=== PATIENT | female | born 1990 | race Hispanic/Latino ===

== ENCOUNTER 2021-08-12 08:34 | Emergency (ER) | payer MEDICAID, OTHER ==
[2021-08-12 09:32] LABS: Actual Bicarbonate (HCO3v) 18 mEq/L (22-28); Base Excess -6.4 mEq/L (-2.0 to +3.0); Calcium, Ionized (venous) 1.12 mmol/L (1.16-1.32); Chloride (VBG) 101 mmol/L (98-106); Potassium (VBG) 4.72 mmol/L (3.70-5.30); Puncture Site Other Site; RapidComm Collect By LAB; Sodium 133.8 mmol/L (133-146); pH (venous) 7.36 (7.32-7.43)
[2021-08-12 09:49] LABS: Bilirubin Neg (Negative); Blood, Urine Negative (Negative); Clarity Clear (Clear); Glucose, Urine (Dipstick) >=1000 mg/dL (Negative); Ketone, Urine 50 mg/dL (Negative); Leukocyte Negative (Negative); Nitrite Negative (Negative); Protein, Urine (Dipstick) 30 mg/dl (Neg-Trace); Urobilinogen Normal mg/dL (Less than 2)
[2021-08-12 09:52] LABS: Pregnancy Test - Urine (BHCG) Negative (Negative); Pregu Control Background? CLEAR/WHITE (CLR/WHITE); Pregu Control Bar Appear? YES (CONTROL BAR)
[2021-08-12 09:57] LABS: Magnesium 1.7 mg/dL (1.6-2.6)
[2021-08-12 10:03] LABS: ALT (SGPT) 15 U/L (8-55); AST (SGOT) 13 U/L (5-34); Albumin 4.1 g/dL (3.5-5.0); Alkaline Phosphatase 137 U/L (40-110); Anion Gap 19 mmol/L (10-20); BUN (Urea Nitrogen) 14 mg/dL (7.0-18.7); Bilirubin, Total 0.4 mg/dL (0.2-1.2); Calc. Creatinine Clearance 0 mL/min (70-130); Calcium 9.2 mg/dL (7.8-10.44); Carbon Dioxide 21 mmol/L (22-29); Chloride 98 mmol/L (98-107); Estimated GFR 97; Globulin 3.3 g/dL (2.4-3.5); Phosphorus 4.3 mg/dL (2.3-4.7); Potassium 5.1 mmol/L (3.5-5.1); Protein, Total 7.4 g/dL (6.0-8.3); Sodium 133 mmol/L (136-145)
[2021-08-12 10:09] LABS: #Basophils 0.1 10x3/uL (0.0-0.2); #Eosinphils 0.3 10x3/uL (0.0-0.5); #Monocytes 0.8 10x3/uL (0.0-1.1); #Neutrophils 6.2 10x3/uL (1.5-8.4); %Basophils 1.1 % (0.0-2.0); %Eosinophils 3.3 % (0.0-6.0); %Lymphocytes 26.7 % (18.0-47.0); %Monocytes 7.9 % (0.0-10.0); %Neutrophils 60.6 % (40.0-75.0); Hemoglobin 13.5 g/dL (12.0-15.5); Mean Corpuscular HGB CONC 32.4 g/dL (32.0-36.0); Mean Corpuscular Volume 77.2 fl (81.6-98.3); Mean Platelet Volume 11.7 fl (7.4-10.4); Platelet Count 320 10x3/uL (150-450); RBC Distribution Width 14.3 % (11.5-14.5); White Blood Cell (WBC) Count 10.2 10x3/uL (3.5-10.5)
[2021-08-12 10:10] LABS: Glucose 588 mg/dL (70-105)
[2021-08-12 10:20] LABS: Bacteria/HPF None Seen HPF (None Seen); RBC/HPF 0-3 HPF (0-3); Squamous Epithelial 0-3 HPF (0-3); WBC/HPF 0-3 HPF (0-3)
== END 2021-08-12 11:36 | disposition home or self-care (01) ==
LOC: CSHERS 08:34
DX: E11.65 Type 2 diabetes mellitus with hyperglycemia (principal); E86.0 Dehydration
CPT/HCPCS: 36416; 71045; 80053; 81003; 81015; 81025; 82010; 82805; 83735; 84100; 84484; 85025; 93005; 96360; 96361

== ENCOUNTER 2022-05-23 03:35 | Emergency (ER) | payer OTHER | END 2022-05-23 06:51 | disposition home or self-care (01) | LOC: CSHERS 03:35 | DX: O20.8 Other hemorrhage in early pregnancy (principal); E11.9 Type 2 diabetes mellitus without complications; E66.9 Obesity, unspecified; Z79.4 Long term (current) use of insulin; Z3A.01 Less than 8 weeks gestation of pregnancy | CPT/HCPCS: 36415; 76856; 84702 ==

== ENCOUNTER 2022-06-13 18:55 | Emergency (ER) | payer OTHER ==
[2022-06-13 21:47] LABS: #Eosinphils 0.3 10x3/uL (0.0-0.5); #Neutrophils 6.9 10x3/uL (1.5-8.4); %Basophils 0.3 % (0.0-2.0); %Eosinophils 2.5 % (0.0-6.0); %Lymphocytes 24.6 % (18.0-47.0); %Neutrophils 63.2 % (40.0-75.0); Hemoglobin 11.7 g/dL (12.0-15.5); Mean Corpuscular HGB CONC 32.7 g/dL (32.0-36.0); Mean Corpuscular Hemoglobin 25.9 pg (27.0-33.0); Mean Corpuscular Volume 79.4 fl (81.6-98.3); Mean Platelet Volume 10.3 fl (7.4-10.4); Platelet Count 295 10x3/uL (150-450); RBC Distribution Width 14.6 % (11.5-14.5); Red Blood Cell (RBC) Count 4.51 10x6/uL (3.90-5.03); White Blood Cell (WBC) Count 10.9 10x3/uL (3.5-10.5)
[2022-06-13 22:00] LABS: ALT (SGPT) 9 U/L (8-55); AST (SGOT) 10 U/L (5-34); Albumin 3.6 g/dL (3.5-5.0); Alkaline Phosphatase 61 U/L (40-110); Anion Gap 14 mmol/L (10-20); BUN (Urea Nitrogen) 11 mg/dL (7.0-18.7); Bilirubin, Total 0.1 mg/dL (0.2-1.2); Calc. Creatinine Clearance 0 mL/min (70-130); Calcium 8.9 mg/dL (7.8-10.44); Carbon Dioxide 19 mmol/L (22-29); Chloride 107 mmol/L (98-107); Estimated GFR 125; Globulin 3.1 g/dL (2.4-3.5); Glucose 101 mg/dL (70-105); Potassium 3.8 mmol/L (3.5-5.1); Protein, Total 6.7 g/dL (6.0-8.3); Sodium 136 mmol/L (136-145)
[2022-06-13 22:09] LABS: Bilirubin Neg (Negative); Blood, Urine 50 (Negative); Clarity Slightly Cloudy (Clear); Glucose, Urine (Dipstick) Normal (Negative); Ketone, Urine Negative (Negative); Leukocyte 100 (Negative); Nitrite Negative (Negative); Protein, Urine (Dipstick) 30 mg/dl (Neg-Trace); Urobilinogen Normal mg/dL (Less than 2)
[2022-06-13 22:27] LABS: Bacteria/HPF 2+ HPF (None Seen); Squamous Epithelial 0-3 HPF (0-3)
== END 2022-06-13 22:37 | disposition home or self-care (01) ==
LOC: CSHERS 18:55
DX: N30.00 Acute cystitis without hematuria (principal); E11.9 Type 2 diabetes mellitus without complications; Z79.4 Long term (current) use of insulin
CPT/HCPCS: 36415; 76815; 80053; 81003; 81015; 85025; 87086

== ENCOUNTER 2022-09-11 07:46 | Day surgery (SDC) | payer OTHER ==
[2022-09-11 09:12] VITALS: BMI 47.6
[2022-09-11] MEDS ORDERED: hydrALAZINE 20 MG/ML VIAL SLOW IVP PRN (09:13)
== END 2022-09-11 09:58 | disposition home or self-care (01) ==
LOC: CSHLD/OP 07:46
PROVIDERS: ATTEND Family Medicine
DX: O46.92 Antepartum hemorrhage, unspecified, second trimester (principal); O24.312 Unspecified pre-existing diabetes mellitus in pregnancy, second trimester; O10.912 Unspecified pre-existing hypertension complicating pregnancy, second trimester; O99.282 Endocrine, nutritional and metabolic diseases complicating pregnancy, second trimester; E03.9 Hypothyroidism, unspecified; O99.213 Obesity complicating pregnancy, third trimester; E66.9 Obesity, unspecified; Z79.899 Other long term (current) drug therapy; Z3A.23 23 weeks gestation of pregnancy

== ENCOUNTER 2022-09-23 12:41 | Day surgery (SDC) | payer OTHER ==
[2022-09-23] MEDS ORDERED: hydrALAZINE 20 MG/ML VIAL SLOW IVP PRN (13:26)
[2022-09-23 14:04] VITALS: BMI 45.3
== END 2022-09-23 15:40 | disposition home or self-care (01) ==
LOC: CSHLD/OP 12:41
PROVIDERS: ATTEND Family Medicine
DX: O36.8120 Decreased fetal movements, second trimester, not applicable or unspecified (principal); O24.112 Pre-existing type 2 diabetes mellitus, in pregnancy, second trimester; O10.912 Unspecified pre-existing hypertension complicating pregnancy, second trimester; Z79.4 Long term (current) use of insulin; Z3A.25 25 weeks gestation of pregnancy
CPT/HCPCS: 76815; 99282

== ENCOUNTER 2022-10-12 08:23 | Day surgery (SDC) | payer OTHER ==
[2022-10-12 08:45] VITALS: BMI 48.2
== END 2022-10-12 10:05 | disposition home or self-care (01) ==
LOC: CSHLD/OP 08:23
PROVIDERS: ATTEND Family Medicine
DX: O99.891 Other specified diseases and conditions complicating pregnancy (principal); Z3A.28 28 weeks gestation of pregnancy
CPT/HCPCS: 87480; 87510; 87660; 99283

== ENCOUNTER 2022-10-18 21:43 | Day surgery (SDC) | payer OTHER ==
[2022-10-18 22:09] VITALS: BMI 48.3
[2022-10-18] MEDS ORDERED: Acetaminophen 500 MG TAB PO SCH (22:30)
[2022-10-18 22:48] LABS: Creatinine, Urine 61.17 mg/dL (47-110)
[2022-10-18 23:08] LABS: #Eosinphils 0.2 10x3/uL (0.0-0.5); #Monocytes 0.8 10x3/uL (0.0-1.1); #Neutrophils 6.6 10x3/uL (1.5-8.4); %Basophils 0.4 % (0.0-2.0); %Eosinophils 2.4 % (0.0-6.0); %Monocytes 7.7 % (0.0-10.0); %Neutrophils 67.7 % (40.0-75.0); Hematocrit 34.1 % (34.9-44.5); Hemoglobin 11.1 g/dL (12.0-15.5); Mean Corpuscular HGB CONC 32.6 g/dL (32.0-36.0); Mean Corpuscular Hemoglobin 26.4 pg (27.0-33.0); Mean Corpuscular Volume 81.2 fl (81.6-98.3); Mean Platelet Volume 11.2 fl (7.4-10.4); Platelet Count 264 10x3/uL (150-450); RBC Distribution Width 14.1 % (11.5-14.5); White Blood Cell (WBC) Count 9.7 10x3/uL (3.5-10.5)
[2022-10-18 23:27] LABS: ALT (SGPT) 30 U/L (8-55); AST (SGOT) 12 U/L (5-34); Alkaline Phosphatase 147 U/L (40-110); Anion Gap 14 mmol/L (10-20); BUN (Urea Nitrogen) 8 mg/dL (7.0-18.7); Bilirubin, Total 0.2 mg/dL (0.2-1.2); Calc. Creatinine Clearance 257 mL/min (70-130); Calcium 8.6 mg/dL (7.8-10.44); Carbon Dioxide 18 mmol/L (22-29); Chloride 108 mmol/L (98-107); Estimated GFR 123; Globulin 3.2 g/dL (2.4-3.5); Glucose 200 mg/dL (70-105); Potassium 3.8 mmol/L (3.5-5.1); Protein, Total 6.2 g/dL (6.0-8.3); Sodium 136 mmol/L (136-145)
== END 2022-10-19 00:30 | disposition home or self-care (01) ==
LOC: CSHLD/OP 21:43
PROVIDERS: ATTEND Family Medicine
DX: O13.3 Gestational [pregnancy-induced] hypertension without significant proteinuria, third trimester (principal); O99.213 Obesity complicating pregnancy, third trimester; E66.01 Morbid (severe) obesity due to excess calories; O99.283 Endocrine, nutritional and metabolic diseases complicating pregnancy, third trimester; E03.9 Hypothyroidism, unspecified; O24.313 Unspecified pre-existing diabetes mellitus in pregnancy, third trimester; Z79.4 Long term (current) use of insulin; Z79.82 Long term (current) use of aspirin; Z79.890 Hormone replacement therapy; Z79.899 Other long term (current) drug therapy; Z90.49 Acquired absence of other specified parts of digestive tract; Z3A.29 29 weeks gestation of pregnancy
CPT/HCPCS: 36415; 80053; 82570; 84156; 85025; 99283

== ENCOUNTER 2022-11-24 17:44 | Day surgery (SDC) | payer OTHER ==
[2022-11-24 18:42] VITALS: BMI 51.3
[2022-11-24] MEDS ORDERED: hydrALAZINE 20 MG/ML VIAL SLOW IVP PRN (18:50)
[2022-11-24] MEDS ORDERED: Lantus 1000 UNITS/10 ML VIAL SC SCH (21:00)
[2022-11-24] MEDS ORDERED: Labetalol HCl 100 MG TAB PO SCH (21:00)
[2022-11-25] MEDS ORDERED: Levothyroxine Sodium 75 MCG TAB PO SCH (06:00)
[2022-11-25] MEDS ORDERED: HumaLOG 300 UNITS/3 ML VIAL SC SCH (08:00)
[2022-11-25] MEDS ORDERED: NIFEdipine XL 90 MG ER.TAB PO SCH (09:00)
== END 2022-11-24 19:59 | disposition home or self-care (01) ==
LOC: CSHLD/OP 17:44
PROVIDERS: ATTEND Family Medicine
DX: O16.3 Unspecified maternal hypertension, third trimester (principal); O24.113 Pre-existing type 2 diabetes mellitus, in pregnancy, third trimester; O99.283 Endocrine, nutritional and metabolic diseases complicating pregnancy, third trimester; E03.9 Hypothyroidism, unspecified; O99.213 Obesity complicating pregnancy, third trimester; E66.01 Morbid (severe) obesity due to excess calories; O99.513 Diseases of the respiratory system complicating pregnancy, third trimester; J45.909 Unspecified asthma, uncomplicated; Z3A.34 34 weeks gestation of pregnancy; Z90.49 Acquired absence of other specified parts of digestive tract; Z79.890 Hormone replacement therapy; Z79.899 Other long term (current) drug therapy; Z79.4 Long term (current) use of insulin; Z79.82 Long term (current) use of aspirin
CPT/HCPCS: 36416

== ENCOUNTER 2022-11-25 03:22 | Inpatient (IN) | payer OTHER ==
[2022-11-25] MEDS ORDERED: hydrALAZINE 20 MG/ML VIAL SLOW IVP PRN ×3 (04:10→21:36)
[2022-11-25 04:11] VITALS: BMI 51.1
[2022-11-25 04:50] LABS: Hematocrit 33.6 % (34.9-44.5); Hemoglobin 11.2 g/dL (12.0-15.5); Mean Corpuscular HGB CONC 33.3 g/dL (32.0-36.0); Mean Corpuscular Hemoglobin 26.5 pg (27.0-33.0); Mean Corpuscular Volume 79.6 fl (81.6-98.3); Mean Platelet Volume 12.1 fl (7.4-10.4); Platelet Count 243 10x3/uL (150-450); RBC Distribution Width 14.7 % (11.5-14.5); Red Blood Cell (RBC) Count 4.22 10x6/uL (3.90-5.03); White Blood Cell (WBC) Count 18.9 10x3/uL (3.5-10.5)
[2022-11-25] MEDS ORDERED: SODIUM CHLORIDE IVPB SCH (05:00)
[2022-11-25] MEDS ORDERED: ADMIXTURE FEE IVPB SCH (05:00)
[2022-11-25] MEDS ORDERED: GENTAMICIN IVPB SCH (05:00)
[2022-11-25 05:02] LABS: ALT (SGPT) 36 U/L (8-55); AST (SGOT) 19 U/L (5-34); Albumin 3.1 g/dL (3.5-5.0); Alkaline Phosphatase 171 U/L (40-110); Anion Gap 14 mmol/L (10-20); BUN (Urea Nitrogen) 10 mg/dL (7.0-18.7); Bilirubin, Total 0.4 mg/dL (0.2-1.2); Calc. Creatinine Clearance 227 mL/min (70-130); Calcium 8.9 mg/dL (7.8-10.44); Carbon Dioxide 15 mmol/L (22-29); Chloride 107 mmol/L (98-107); Estimated GFR 119; Globulin 3.4 g/dL (2.4-3.5); Glucose 75 mg/dL (70-105); Potassium 3.6 mmol/L (3.5-5.1); Protein, Total 6.5 g/dL (6.0-8.3); Sodium 132 mmol/L (136-145)
[2022-11-25] MEDS ORDERED: Methylergonovine 0.2 MG/ML VIAL IM PRN (05:11)
[2022-11-25] MEDS ORDERED: Carboprost 250 MCG/ML AMP IM PRN (05:11)
[2022-11-25] MEDS ORDERED: Promethazine HCl 25 MG/ML VIAL IM PRN ×2 (05:11→06:15)
[2022-11-25] MEDS ORDERED: Tranexamic Acid 1,000 MG/10 ML VIAL IVP PRN (05:11)
[2022-11-25] MEDS ORDERED: Diphenoxylate HCl/Atropine Tablet PO PRN (05:11)
[2022-11-25] MEDS ORDERED: Lidocaine 1% (PF) 30 ML VIAL SC PRN (05:11)
[2022-11-25] MEDS ORDERED: fentaNYL/Ropivacaine Epidural 100 ML ONE (05:11)
[2022-11-25] MEDS ORDERED: Misoprostol 200 MCG TAB PR PRN (05:11)
[2022-11-25] MEDS ORDERED: Ondansetron PF 4 MG/2 ML Vial IVP PRN ×3 (05:11→21:36)
[2022-11-25] MEDS ORDERED: Oxytocin 30 units/NS 500 ML 500 ML IV SCH ×2 (05:15)
[2022-11-25 05:20] LABS: HBSAg Index 0.13 S/CO (0-0.99); Hep B Surf Ag - L&D Non-Reactive S/CO (NonReactive)
[2022-11-25 05:21] LABS: Syphilis Antibody Nonreactive (Nonreactive); Syphilis Antibody Index 0.03 S/CO (<1.00 Non-Reactive)
[2022-11-25] MEDS ORDERED: Bupivacaine PF 0.5% 30 ML VIAL ONE (06:00)
[2022-11-25] MEDS ORDERED: Bupivacaine 0.25% HCL 30 ML VIAL ONE (06:00)
[2022-11-25] MEDS ORDERED: Acetaminophen 325 MG TAB PO PRN (06:15)
[2022-11-25] MEDS ORDERED: Naloxone HCl 0.4 mg/ml Vial IVP PRN ×2 (06:15)
[2022-11-25] MEDS ORDERED: Communication Order-Pharmacy FS SCH (06:15)
[2022-11-25] MEDS ORDERED: diphenhydrAMINE 50 MG/ML VIAL IVP PRN (06:15)
[2022-11-25] MEDS ORDERED: Moisturizing Cream (Eucerin) 113 GM JAR TOP PRN (06:15)
[2022-11-25] MEDS ORDERED: ePHEDrine Sulfate 50 MG/10 ML VIAL SLOW IVP PRN (06:15)
[2022-11-25] MEDS ORDERED: fentaNYL 2 mcg/Ropivacaine 0.2% Epidural 100 ML CADD EPIDURAL SCH (06:15)
[2022-11-25] MEDS ORDERED: Lactated Ringer's 500 ML IV PRN (06:15)
[2022-11-25] MEDS: Ampicillin 2 GM in Sodium Chloride 0.9% 100 ML IVPB SCH ×4 (08:10→21:35)
[2022-11-25 08:51] LABS: Bilirubin Neg (Negative); Blood, Urine 25 (Negative); Glucose, Urine (Dipstick) Normal (Negative); Ketone, Urine 5 mg/dL (Negative); Leukocyte Negative (Negative); Nitrite Negative (Negative); Protein, Urine (Dipstick) 100 mg/dl (Neg-Trace); Urobilinogen Normal mg/dL (Less than 2)
[2022-11-25 08:52] LABS: Clarity Clear (Clear)
[2022-11-25 09:02] LABS: Bacteria/HPF 1+ HPF (None Seen); CAUTI Indications for Culture Fever or rigors; Squamous Epithelial 0-3 HPF (0-3); WBC/HPF None Seen HPF (0-3)
[2022-11-25 09:04] LABS: Urine Culture Reflex No No
[2022-11-25 10:34] LABS: Glucose 91 mg/dL (70-105)
[2022-11-25] MEDS ORDERED: HumaLOG 300 UNITS/3 ML VIAL SC PRN (12:39)
[2022-11-25] MEDS ORDERED: Dextrose 50% Abboject 50 ML SYRINGE SLOW IVP PRN (12:39)
[2022-11-25] MEDS ORDERED: Glucagon 1 MG/ML KIT IM PRN (12:39)
[2022-11-25] MEDS ORDERED: Dextrose 5% in Water 1,000 ML IV PRN (12:39)
[2022-11-25 13:54] LABS: HIV (1/2) Antibody/Antigen Non-Reactive (NonReactive); HIV 1/2 INDEX 0.12 S/CO (<1.00)
[2022-11-25] MEDS ORDERED: fentaNYL 50 mcg/mL 1 mL Vial ONE (16:33)
[2022-11-25] MEDS ORDERED: Ibuprofen 800 MG TAB PO SCH (18:30)
[2022-11-25] MEDS ORDERED: fentaNYL 50 mcg/mL 1 mL Vial SLOW IVP SCH (19:15)
[2022-11-25] MEDS ORDERED: fentaNYL 50 mcg/mL 1 mL Vial EPIDURAL SCH (19:30)
[2022-11-25] MEDS ORDERED: Boostrix 0.5 ML (Tdap) VIAL (>/=7 yrs of age) IM ONE (21:36)
[2022-11-25] MEDS ORDERED: Benzocaine-Menthol 82.5 ML CAN TOP PRN (21:36)
[2022-11-25] MEDS ORDERED: Milk Of Magnesia 30 ML UDCUP PO PRN (21:36)
[2022-11-25] MEDS ORDERED: Lanolin Ointment 7 GM TUBE TOP PRN (21:36)
[2022-11-25] MEDS ORDERED: diphenhydrAMINE 25 MG CAP PO PRN (21:36)
[2022-11-25] MEDS ORDERED: Bisacodyl 10 MG SUPP PR PRN (21:36)
[2022-11-25] MEDS ORDERED: HumaLOG 300 UNITS/3 ML VIAL SC SCH (21:45)
[2022-11-25] MEDS ORDERED: Lantus 1000 UNITS/10 ML VIAL SC SCH (21:45)
[2022-11-25] MEDS ORDERED: Docusate 100 MG CAP PO SCH (21:45)
[2022-11-25] MEDS: HYDROcodone/Acetaminophen 5/325 mg Tablet PO PRN (22:42)
[2022-11-26] MEDS ORDERED: Ibuprofen 800 MG TAB PO SCH (02:00)
[2022-11-26] MEDS: Ampicillin 2 GM in Sodium Chloride 0.9% 100 ML IVPB SCH (07:05)
[2022-11-26] MEDS: HumaLOG 300 UNITS/3 ML VIAL SC SCH ×3 (07:53→16:42)
[2022-11-26] MEDS: Docusate 100 MG CAP PO SCH ×2 (07:55→21:21)
[2022-11-26] MEDS: Ferrous Sulfate 325 MG TAB PO SCH ×2 (07:55→15:45)
[2022-11-26] MEDS: Prenatal Vitamin 1 TAB PO SCH (07:55)
[2022-11-26] MEDS: NIFEdipine XL 90 MG ER.TAB PO SCH (08:01)
[2022-11-26] MEDS: Ibuprofen 800 MG TAB PO SCH ×2 (13:37→21:22)
[2022-11-26] MEDS: HYDROcodone/Acetaminophen 5/325 mg Tablet PO PRN (13:38)
[2022-11-26] MEDS ORDERED: Lantus 1000 UNITS/10 ML VIAL SC SCH (21:00)
[2022-11-26] MEDS: Lantus 1000 UNITS/10 ML VIAL SC SCH (21:20)
[2022-11-26] MEDS: Labetalol HCl 100 MG TAB PO SCH (21:21)
[2022-11-27] MEDS: Ibuprofen 800 MG TAB PO SCH ×3 (06:20→21:52)
[2022-11-27] MEDS: Labetalol HCl 100 MG TAB PO SCH ×3 (06:20→21:52)
[2022-11-27] MEDS: HYDROcodone/Acetaminophen 5/325 mg Tablet PO PRN ×2 (06:27→19:40)
[2022-11-27] MEDS: HumaLOG 300 UNITS/3 ML VIAL SC SCH ×3 (08:13→18:01)
[2022-11-27] MEDS: Prenatal Vitamin 1 TAB PO SCH (08:14)
[2022-11-27] MEDS: NIFEdipine XL 90 MG ER.TAB PO SCH (08:14)
[2022-11-27] MEDS: Docusate 100 MG CAP PO SCH ×2 (08:14→21:52)
[2022-11-27] MEDS: Ferrous Sulfate 325 MG TAB PO SCH (11:37)
[2022-11-27] MEDS: Lantus 1000 UNITS/10 ML VIAL SC SCH (21:54)
[2022-11-28] MEDS: Labetalol HCl 100 MG TAB PO SCH (06:05)
[2022-11-28] MEDS: Ibuprofen 800 MG TAB PO SCH (06:06)
[2022-11-28] MEDS: Ferrous Sulfate 325 MG TAB PO SCH (07:01)
[2022-11-28] MEDS: NIFEdipine XL 90 MG ER.TAB PO SCH (07:49)
[2022-11-28] MEDS: Docusate 100 MG CAP PO SCH (07:49)
[2022-11-28] MEDS: HumaLOG 300 UNITS/3 ML VIAL SC SCH (07:49)
[2022-11-28] MEDS: Prenatal Vitamin 1 TAB PO SCH (07:50)
[2022-11-28 07:57] VITALS: BP 122/56; TEMP 97.5
== END 2022-11-28 12:40 | disposition home or self-care (01) | DRG 805 ==
LOC: CSHLD/OP 03:22 → CSHLD 04:21 → CSHPED 20:03
PROVIDERS: ADMIT Family Medicine; ATTEND Family Medicine
PROC: 10E0XZZ Delivery of Products of Conception, External Approach (ICD-10-PCS; principal; 2022-11-25)
PROC: 0HQ9XZZ Repair Perineum Skin, External Approach (ICD-10-PCS; 2022-11-25)
PROC: 10907ZC Drainage of Amniotic Fluid, Therapeutic from Products of Conception, Via Natural or Artificial Opening (ICD-10-PCS; 2022-11-25)
PROC: 10H07YZ Insertion of Other Device into Products of Conception, Via Natural or Artificial Opening (ICD-10-PCS; 2022-11-25)
DX: O60.14X0 Preterm labor third trimester with preterm delivery third trimester, not applicable or unspecified (principal); O24.12 Pre-existing type 2 diabetes mellitus, in childbirth; Z37.0 Single live birth; O10.92 Unspecified pre-existing hypertension complicating childbirth; O75.2 Pyrexia during labor, not elsewhere classified; Z3A.34 34 weeks gestation of pregnancy; E11.9 Type 2 diabetes mellitus without complications; O11.4 Pre-existing hypertension with pre-eclampsia, complicating childbirth; E66.01 Morbid (severe) obesity due to excess calories; O99.214 Obesity complicating childbirth; E03.9 Hypothyroidism, unspecified; O99.284 Endocrine, nutritional and metabolic diseases complicating childbirth; O69.81X0 Labor and delivery complicated by cord around neck, without compression, not applicable or unspecified
CPT/HCPCS: 36416; 51702; 80053; 81001; 85027; 86762; 86780; 86850; 86900; 86901; 87340; 87389; 88307; 99282; 99285; J0290; J1580; J1815; J2590; J3010; J3490; S0020

== ENCOUNTER 2023-04-30 09:11 | Emergency (ER) | payer OTHER, SELFPAY ==
[2023-04-30] MEDS ORDERED: Acetaminophen 500 MG TAB ONE (09:42)
[2023-04-30] MEDS ORDERED: Ketorolac Tromethamine 30 MG (1 mL) VIAL ONE (09:42)
== END 2023-04-30 10:01 | disposition home or self-care (01) ==
LOC: CSHERS 09:11
DX: M54.50 Low back pain, unspecified (principal); E11.9 Type 2 diabetes mellitus without complications; Z55.6 Problems related to health literacy
CPT/HCPCS: 96372; 99283; J1885

== ENCOUNTER 2023-12-04 08:57 | Emergency (ER) | payer OTHER ==
[2023-12-04 09:31] LABS: #Basophils 0.05 10x3/uL (0.0-0.2); #Eosinophils 0.21 10x3/uL (0.0-0.5); #Monocytes 0.64 10x3/uL (0.0-1.1); #Neutrophils 6.43 10x3/uL (1.5-8.4); %Basophils 0.5 % (0.0-2.0); %Eosinophils 2.1 % (0.0-6.0); %Lymphocytes 24.6 % (18.0-47.0); %Monocytes 6.5 % (0.0-10.0); %Neutrophils 65.9 % (40.0-75.0); Hematocrit 41.5 % (34.9-44.5); Hemoglobin 13.2 g/dL (12.0-15.5); Mean Corpuscular HGB CONC 31.8 g/dL (32.0-36.0); Mean Corpuscular Hemoglobin 26.1 pg (27.0-33.0); Mean Platelet Volume 10.5 fL (7.4-10.4); Platelet Count 290 10x3/uL (150-450); RBC Distribution Width 13.2 % (11.5-14.5); Red Blood Cell (RBC) Count 5.06 10x6/uL (3.90-5.03); White Blood Cell (WBC) Count 9.8 10x3/uL (3.5-10.5)
[2023-12-04 09:44] LABS: ALT (SGPT) 12 U/L (8-55); AST (SGOT) 11 U/L (5-34); Albumin 3.4 g/dL (3.5-5.0); Alkaline Phosphatase 77 U/L (40-110); Anion Gap 16 mmol/L (10-20); BUN (Urea Nitrogen) 7 mg/dL (7.0-18.7); Bilirubin, Total 0.4 mg/dL (0.2-1.2); Calc. Creatinine Clearance 0 mL/min (70-130); Calcium 8.7 mg/dL (7.8-10.44); Carbon Dioxide 16 mmol/L (22-29); Chloride 104 mmol/L (98-107); Estimated GFR 119; Globulin 3.5 g/dL (2.4-3.5); Glucose 262 mg/dL (70-105); Protein, Total 6.9 g/dL (6.0-8.3); Sodium 132 mmol/L (136-145)
[2023-12-04 10:39] LABS: Bilirubin Neg (Negative); Blood, Urine 50 (Negative); Clarity Clear (Clear); Glucose, Urine (Dipstick) >=1000 mg/dL (Negative); Ketone, Urine 50 mg/dL (Negative); Leukocyte 25 (Negative); Nitrite Negative (Negative); Protein, Urine (Dipstick) 100 mg/dl (Neg-Trace); Specific Gravity, Urine 1.015 (1.005-1.030); Urobilinogen Normal mg/dL (Less than 2)
[2023-12-04 11:11] LABS: Bacteria/HPF 1+ HPF (None Seen); CAUTI Indications for Culture Pelvic or flank pain; RBC/HPF 0-3 HPF (0-3); Squamous Epithelial 0-3 HPF (0-3); Urine Culture Reflex No No; WBC/HPF 0-3 HPF (0-3)
== END 2023-12-04 11:00 | disposition home or self-care (01) ==
LOC: CSHERS 08:57
DX: O20.9 Hemorrhage in early pregnancy, unspecified (principal); O24.111 Pre-existing type 2 diabetes mellitus, in pregnancy, first trimester; O10.911 Unspecified pre-existing hypertension complicating pregnancy, first trimester; Z3A.10 10 weeks gestation of pregnancy; Z87.891 Personal history of nicotine dependence; Z55.6 Problems related to health literacy; Z75.3 Unavailability and inaccessibility of health-care facilities; Z79.899 Other long term (current) drug therapy
CPT/HCPCS: 36415; 76856; 80053; 81001; 84702; 85025; 86900; 86901

== ENCOUNTER 2023-12-14 14:07 | Outpatient (CLI) | payer OTHER | END 2023-12-14 14:08 | disposition home or self-care (01) | LOC: CSHULT 14:07 | DX: O20.9 Hemorrhage in early pregnancy, unspecified (principal); R79.9 Abnormal finding of blood chemistry, unspecified | CPT/HCPCS: 76801 ==